=== PATIENT | female | born 2000 | race American Indian/Alaskan Native ===

== ENCOUNTER 2021-12-04 08:58 | Outpatient (CLI) | payer OTHER ==
[2021-12-05] MEDS ORDERED: PRENATAL CAPLE1 EAC1 (00:44)
== END 2021-12-04 10:17 | disposition home or self-care (01) ==
LOC: NST 08:58
PROVIDERS: ATTEND Obstetrics & Gynecology
DX: Z34.83 Encounter for supervision of other normal pregnancy, third trimester (principal)

== ENCOUNTER → 2021-12-05 | Outpatient (CLI) | payer OTHER ==
[~2021-12-05] MED LIST: PRENATAL CAPLE1 EAC1
== END | disposition home or self-care (01) ==
LOC: NST 00:29
PROVIDERS: ATTEND Obstetrics & Gynecology
DX: Z34.82 Encounter for supervision of other normal pregnancy, second trimester (principal)

== ENCOUNTER 2022-03-14 09:35 | Inpatient (IN) | payer OTHER ==
[~2022-03-14] VITALS: Ht 167.6 cm; Wt 80.7 kg
[2022-03-16] MEDS ORDERED: ZITHROMAX200 MG PO (13:23)
[2022-03-16] MEDS ORDERED: OSEL75CA PO (13:23)
== END 2022-03-16 15:38 | disposition home or self-care (01) | DRG 832 ==
LOC: LDR 09:35 → OB/GYN 03-16 10:17
PROVIDERS: ADMIT Obstetrics & Gynecology Maternal & Fetal Medicine; ATTEND Obstetrics & Gynecology Maternal & Fetal Medicine
PROC: 4A1HXCZ Monitoring of Products of Conception, Cardiac Rate, External Approach (ICD-10-PCS; principal; 2022-03-14)
PROC: 3E0F7GC Introduction of Other Therapeutic Substance into Respiratory Tract, Via Natural or Artificial Opening (ICD-10-PCS; 2022-03-14)
DX: O26.893 Other specified pregnancy related conditions, third trimester (principal); J45.901 Unspecified asthma with (acute) exacerbation; J10.1 Influenza due to other identified influenza virus with other respiratory manifestations; Z3A.36 36 weeks gestation of pregnancy; Z20.822 Contact with and (suspected) exposure to COVID-19; A49.3 Mycoplasma infection, unspecified site

== ENCOUNTER 2022-04-13 14:45 | Inpatient (IN) | payer OTHER ==
[~2022-04-13] VITALS: Ht 157.5 cm; Wt 83.5 kg
[~2022-04-13 14:45] MED LIST changes: +OSEL75CA PO; +ZITHROMAX200 MG PO
[2022-04-17] MEDS ORDERED: PRENATAL TABLE1 EAC1 PO ×2 (14:29→14:30)
[2022-04-22] MEDS ORDERED: PRENATAL TABLE1 EAC3 PO (07:10)
== END 2022-04-24 16:05 | disposition home or self-care (01) | DRG 807 ==
LOC: LDR 04-22 05:33 → SURG-SUITE 04-22 05:33 → LDR 04-22 14:45 → SURG-SUITE 04-24 16:05
PROVIDERS: ADMIT Obstetrics & Gynecology Maternal & Fetal Medicine; ATTEND Obstetrics & Gynecology Maternal & Fetal Medicine
PROC: 10E0XZZ Delivery of Products of Conception, External Approach (ICD-10-PCS; principal; 2022-04-22)
PROC: 4A1HXCZ Monitoring of Products of Conception, Cardiac Rate, External Approach (ICD-10-PCS; 2022-04-22)
PROC: 0UQG7ZZ Repair Vagina, Via Natural or Artificial Opening (ICD-10-PCS; 2022-04-22)
DX: O71.4 Obstetric high vaginal laceration alone (principal); Z37.0 Single live birth; Z3A.40 40 weeks gestation of pregnancy; Z20.822 Contact with and (suspected) exposure to COVID-19

== ENCOUNTER 2022-04-17 13:40 | Outpatient (CLI) | payer OTHER ==
[2022-04-17] MEDS ORDERED: PRENATAL TABLE1 EAC1 PO ×2 (14:29→14:30)
== END 2022-04-17 14:43 | disposition home or self-care (01) ==
LOC: OBS/DEL 13:40
PROVIDERS: ATTEND Obstetrics & Gynecology Maternal & Fetal Medicine
DX: O26.893 Other specified pregnancy related conditions, third trimester (principal); Z3A.39 39 weeks gestation of pregnancy

== ENCOUNTER 2022-04-21 13:25 | Outpatient (CLI) | payer OTHER ==
[~2022-04-21 13:25] MED LIST changes: +PRENATAL TABLE1 EAC1 PO
[2022-04-22] MEDS ORDERED: PRENATAL TABLE1 EAC3 PO (07:10)
== END 2022-04-21 14:36 | disposition home or self-care (01) ==
LOC: NST 13:25
PROVIDERS: ATTEND Obstetrics & Gynecology
DX: Z34.83 Encounter for supervision of other normal pregnancy, third trimester (principal)

== ENCOUNTER 2024-06-27 07:25 | Outpatient (CLI) | payer OTHER ==
[~2024-06-27 07:25] MED LIST changes: +PRENATAL TABLE1 EAC3 PO
== END 2024-06-27 07:32 | disposition home or self-care (01) ==
LOC: SONOGRAMA 07:25
PROVIDERS: ATTEND Internal Medicine Gastroenterology
DX: R10.9 Unspecified abdominal pain (principal)